=== PATIENT | male | born 1985 | race Caucasian/White ===

== ENCOUNTER 2020-01-17 12:20 | Emergency (ER) | payer OTHER ==
[~2020-01-17] VITALS: Ht 170.2 cm; Wt 84.8 kg
[2020-01-17 12:28] VITALS: Ht 170.2 cm; Wt 84.8 kg
[2020-01-17 13:20] VITALS: BP 120/74
== END 2020-01-17 13:20 | disposition home or self-care (01) ==
LOC: ED 12:20
DX: R21 Rash and other nonspecific skin eruption (principal)